=== PATIENT | male | born 1970 | race Caucasian/White ===

== ENCOUNTER 2021-03-02 00:40 | Day surgery (SDC) | payer OTHER, SELFPAY ==
[2021-02-22 13:34] VITALS: BMI 34.0
[2021-03-02 06:15] VITALS: BP 129/83; PULSE 53; RESP 18; TEMP 36.2; O2SAT 98
[2021-03-02] MEDS: LACTATED RINGERS 1,000 ML 150 ML IV CONT (06:37)
--- NOTE | 2021-03-02 07:13 | WPDANESEPPF ---
Anes - Initial Pre Proc Eval Procedure: Operation Date: 03/02/21 07:30 Proposed Procedures p Screening Colonoscopy - Hayden Ambrose MD Date/Time: 03/02/21 07:13 Surgeon: Hayden Ambrose MD Pre Op Diagnosis: neoplasm screening Patient Data Age: 50 Gender: M Height: 1.88 m Weight: 120 kg Last Vital Signs Pulse 53 L 03/02/21 06:15 Resp 18 03/02/21 06:15 BP 129/83 03/02/21 06:15 Pulse Ox 98 03/02/21 06:15 Allergies Allergy/AdvReac Type Severity Reaction Status Date / Time No Known Allergies Allergy Verified 03/02/21 06:24 Home Medications Medication Instructions Recorded Confirmed Type esomeprazole magnesium 20 mg 20 mg PO DAILY 05/22/19 02/22/21 History capsule,delayed release flash glucose sensor #7 each 02/17/20 08/19/20 Rx bupropion HCl 300 mg 24 hr tablet, 300 mg PO QAM #90 tablet 10/03/20 02/22/21 Rx extended release lisinopril 20 1 tablet PO DAILY #90 tablet 10/11/20 02/22/21 Rx mg-hydrochlorothiazide 12.5 mg tablet glycopyrrolate 2 mg tablet See Rx Instructions .ROUTE 12/02/20 02/22/21 Rx .COMPLEX #330 tablet alprazolam 0.25 mg tablet 0.25 mg PO TID PRN #30 tablet 02/13/21 02/22/21 Rx Patient hx anesthesia problems: none Family hx anesthesia problems: none PMFSH Past Medical History Medical History (Updated 03/02/21 @ 07:14 by Jose Manuel Alatorre MD) Esophageal reflux Essential (primary) hypertension Left ankle sprain Metabolic syndrome Nicotine dependence, unspecified, uncomplicated Obesity (BMI 35.0-39.9 without comorbidity) Obstructive sleep apnea (adult) (pediatric) Sexual dysfunction, psychological Family History Family History Mother Diabetes mellitus Depression Grandparent Diabetes mellitus Carcinoma of colon Father Hypertension Social History Social History Smoking status: Never smoker Smoking end date: 06/17/17 Alcohol intake: current Drinks per week: 15 Living arrangements: with family Spiritual care concerns: No Anes - Eval Final PreProcedure Day of Procedure 03/02/21 07:13 Patient weight: obese Heart: regular rate and rhythm Lungs: clear to auscultation and normal air movement Airway: Mallampati scale class II Neurological: alert and oriented Last oral intake: >/= 8 hours ASA classification: III Emergent: no Anesthetic plan: proceed Anesthesia type and monitoring: general GIVS Informed Consent: The patient's anesthetic plan and its attendant risks and benefits were discussed with the patient/family/POA. Questions were solicited and answers provided to the satisfaction of the patient/family/POA.
--- NOTE | 2021-03-02 07:45 | P.CONGI_ITS ---
Assessment and Plan Assessment and plan (1) Colon cancer screening: Code(s): Z12.11 - Encounter for screening for malignant neoplasm of colon Status: Acute Assessment and Plan: Patient presents for screening colonoscopy. He appears to be at average risk for colon polyps. Further recommendations will be given after endoscopy. GI Consult Note Consult date/time: 03/02/21 07:45 HPI: Von Lyon is a 50 year old male Presents for neoplasia screening. Patient states his weight appetite bowel movements are normal. He denies abdominal pain. He has had no bleeding. Family history is significant for grandfather had colon cancer. There are no first-degree relatives with polyps or other colon issues. Presents today for screening colonoscopy. [facility] Past Medical History Medical History (Updated 03/02/21 @ 07:14 by Jose Manuel Alatorre MD) Esophageal reflux Essential (primary) hypertension Left ankle sprain Metabolic syndrome Nicotine dependence, unspecified, uncomplicated Obesity (BMI 35.0-39.9 without comorbidity) Obstructive sleep apnea (adult) (pediatric) Sexual dysfunction, psychological Family History Family History Mother Diabetes mellitus Depression Grandparent Diabetes mellitus Carcinoma of colon Father Hypertension Social History Social History Smoking status: Never smoker Smoking end date: 06/17/17 Alcohol intake: current Drinks per week: 15 Living arrangements: with family Spiritual care concerns: No Meds Home Medications and Allergies Home Medications Medication Instructions Recorded Confirmed Type esomeprazole magnesium 20 mg 20 mg PO DAILY 05/22/19 02/22/21 History capsule,delayed release flash glucose sensor #7 each 02/17/20 08/19/20 Rx bupropion HCl 300 mg 24 hr tablet, 300 mg PO QAM #90 tablet 10/03/20 02/22/21 Rx extended release lisinopril 20 1 tablet PO DAILY #90 tablet 10/11/20 02/22/21 Rx mg-hydrochlorothiazide 12.5 mg tablet glycopyrrolate 2 mg tablet See Rx Instructions .ROUTE 12/02/20 02/22/21 Rx .COMPLEX #330 tablet alprazolam 0.25 mg tablet 0.25 mg PO TID PRN #30 tablet 02/13/21 02/22/21 Rx Allergies Allergy/AdvReac Type Severity Reaction Status Date / Time No Known Allergies Allergy Verified 03/02/21 06:24 Vital Signs Vital Signs - 24 hr 03/02/21 06:15 Temperature 97.1 F L Pulse Rate 53 L Respiratory Rate 18 Blood Pressure 129/83 Pulse Oximetry 98 Exam Narrative: Physical exam reveals patient be alert. Vital signs stable. HEENT exam is unremarkable. Patient is anicteric. Lungs are clear to auscultation and percussion. Heart is without murmur or extra sounds. Abdom inal exam bowel sounds are present soft nontender with no organomegaly. Digital external rectal exam is normal.
[2021-03-02 07:46] VITALS: BP 129/53; PULSE 72; RESP 18; O2SAT 94
[2021-03-02 07:56] VITALS: BP 120/53; PULSE 61; RESP 18; O2SAT 97
[2021-03-02 08:06] VITALS: BP 128/85; PULSE 66; RESP 18; O2SAT 100
== END 2021-03-02 08:17 | disposition home or self-care (01) ==
PROVIDERS: PCP Family Medicine; Visit Provider Internal Medicine Gastroenterology
PROC: 0DJD8ZZ Inspection of Lower Intestinal Tract, Via Natural or Artificial Opening Endoscopic (ICD-10-PCS; CPT 45378; principal; 2021-03-02 07:30)
DX: Z12.11 Encounter for screening for malignant neoplasm of colon (principal); K64.8 Other hemorrhoids; I10 Essential (primary) hypertension; G47.33 Obstructive sleep apnea (adult) (pediatric); K21.9 Gastro-esophageal reflux disease without esophagitis; E66.9 Obesity, unspecified; Z68.34 Body mass index [BMI] 34.0-34.9, adult
CPT/HCPCS: 45378; J2704; J7120

== ENCOUNTER → 2023-01-25 15:16 | Outpatient (CLI) | payer OTHER, SELFPAY ==
--- NOTE | ~2023-01-25 | MR_ITS ---
EXAMINATION: MR shoulder RT wo con DATE: 01/25/2023 15:53 INDICATION: Right shoulder pain. SLAP tear. TECHNIQUE: Magnetic resonance imaging (MRI) of the right shoulder was performed without intravenous c ontrast. Sequences included axial PD-weighted FS FSE, coronal oblique PD-weighted FS FSE and T2-weigh francia FS FSE, and sagittal oblique T2-weighted FS FSE and T1-weighted FSE. COMPARISON: Right shoulder radiograph 01/17/2023 FINDINGS: Coracoacromial arch: The acromion undersurface is curved in morphology (type II). There is severe acromioclavicular joint osteoarthritis including inferiorly directed osteophytes. There is moderate subacromial/subdeltoid bu rsitis. Rotator cuff: There is moderate supraspinatus tendinopathy and severe infraspinatus tendinopathy. There is shallow bursal sided and articular sided fraying of infraspinatus tendon. Teres minor tendon is normal. There is mild subscapularis tendinopathy. There is no asymmetric fatty atrophy of the rotator cuff muscle bellies. Biceps tendon and glenoid labrum: Biceps tendon is in bicipital groove. There is mild intra-articular biceps tendinopathy. There is a t ear of superior labrum from 10:00 to 5:00 (SLAP tear). Fluid: There is no glenohumeral joint effusion. Bones/cartilage: There is partial-thickness cartilage loss of humeral head and glenoid, deep at superomedial humeral h ead. IMPRESSION: 1. Severe rotator cuff tendinopathy with shallow bursal-sided and articular-sided fraying of infraspi natus tendon. 2. Moderate glenohumeral joint chondrosis. SLAP tear. 3. Mild intra-articular biceps tendinopathy. 4. Severe acromioclavicular joint osteoarthritis. 5. Moderate subacromial/subdeltoid bursitis. Reviewed, dictated and finalized at location E. IMPRESSION: 1. Severe rotator cuff tendinopathy with shallow bursal-sided and articular-demian ed fraying of infraspinatus tendon. 2. Moderate glenohumeral joint chondrosis. SLAP tear. 3. Mild intra-articular biceps tendinopathy. 4. Severe acromioclavicular joint osteoarthritis. 5. Moderate subacromial/subdeltoid bursitis.
== END ==
PROVIDERS: PCP Family Medicine; Visit Provider Orthopaedic Surgery
DX: S43.431A Superior glenoid labrum lesion of right shoulder, initial encounter (principal); M19.011 Primary osteoarthritis, right shoulder; M75.51 Bursitis of right shoulder; M94.211 Chondromalacia, right shoulder; X58.XXXA Exposure to other specified factors, initial encounter
CPT/HCPCS: 73221